=== PATIENT | male | born 1980 | race Caucasian/White ===

== ENCOUNTER 2020-03-10 10:01 | Emergency (ER) | payer MEDICAID ==
[~2020-03-10] VITALS: Ht 182.9 cm; Wt 90.7 kg
[2020-03-10 10:04] VITALS: BP 105/71
[2020-03-10] MEDS ORDERED: ALUMINUM HYD/MAG/SIMETHICONE 30 ML UDC ONE (11:20)
[2020-03-10] MEDS ORDERED: ONDANSETRON 4 MG ODT ONE (11:20)
[2020-03-10] MEDS ORDERED: LIDOCAINE VISCOUS 2% 20 ML UDC ONE (11:22)
[2020-03-10] MEDS ORDERED: DICYCLOMINE HCL LIQUID 10 MG/5 ML UDC ONE (11:22)
[2020-03-10] MEDS: KETOROLAC 60 MG/2 ML VIAL IM ONE (11:31)
[2020-03-10] MEDS: ONDANSETRON 4 MG ODT PO ONE (11:31)
[2020-03-10] MEDS: DICYCLOMINE HCL LIQUID 20 MG, ALUMINUM HYD/MAG/SIMETHICONE 30 ML, LIDOCAINE VISCOUS 2% ... PO ONE ×3 (11:31)
--- NOTE | 2020-03-10 11:42 | NUR ---
40 Y/O MALE BIB MOTHER C/O ABD PAIN SINCE LAST NIGHT WITH NAUSEA, PATIENT IS NOT HAVING ANY VOMITING AT THIS TIME. DENIES COUGH/SOB. AAOX4, GCS 15. VSS.
[2020-03-10 12:02] VITALS: BP 105/71
--- NOTE | 2020-03-10 12:02 | NUR ---
Patient discharged with v/s stable. Written and verbal after care instructions given and explained. Patient alert, oriented and verbalized understanding of instructions. Ambulatory with steady gait. All questions addressed prior to discharge. ID band removed. Patient advised to follow up with PMD. Rx of NORCO, PRILOSEC, MOTRIN, ZOFRAN given. Patient educated on indication of medication including possible reaction and side effects. Opportunity to ask questions provided and answered.
== END 2020-03-10 12:02 | disposition home or self-care (01) ==
LOC: MED 10:01
DX: R10.13 Epigastric pain (principal); R11.0 Nausea; Z90.49 Acquired absence of other specified parts of digestive tract
CPT/HCPCS: 96372; 99283; J1885; Q0162